=== PATIENT | female | born 1970 | race Caucasian/White ===

== ENCOUNTER 2019-06-21 20:38 | Emergency (ER) | payer MEDICAID ==
[~2019-06-21] VITALS: Ht 157.5 cm; Wt 77.1 kg
[2019-06-21 20:44] VITALS: BP_SYST 139
--- NOTE | 2019-06-21 22:13 | NUR ---
Called patient x 1 , no answer
--- NOTE | 2019-06-21 22:18 | NUR ---
Patient to ER H1 for evaluation. Side rails up.
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
--- NOTE | 2019-06-21 22:30 | NUR ---
Dr. Paul bedside for Pt eval
[2019-06-21] MEDS ORDERED: methylPREDNISolone SOD SUCC/PF 62.5 MG/ML VIAL IM ONE (22:45)
[2019-06-21] MEDS ORDERED: SILVER SULFADIAZINE 1%, 25 GM TOPICAL CREAM (SSD) TP ONE (22:45)
[2019-06-21 23:04] VITALS: BP_SYST 139
--- NOTE | 2019-06-21 23:04 | NUR ---
Patient given written and verbal discharge instructions and verbalizes understanding. ER MD discussed with patient the results and treatment provided. Patient in stable condition. ID arm band removed. Rx of Prednisone, Silvadene 1% topical, and Benadryl given. Patient educated on pain management and to follow up with PMD. Pain Scale 0/10. Opportunity for questions provided and answered. Medication side effect fact sheet provided.
== END 2019-06-21 23:04 | disposition home or self-care (01) ==
LOC: SED 20:38
DX: L55.0 Sunburn of first degree (principal); L23.7 Allergic contact dermatitis due to plants, except food; E78.00 Pure hypercholesterolemia, unspecified; E11.9 Type 2 diabetes mellitus without complications; I10 Essential (primary) hypertension; Z85.828 Personal history of other malignant neoplasm of skin
CPT/HCPCS: 16000; 96372; 99284; J2930

== ENCOUNTER 2021-06-13 18:04 | Emergency (ER) | payer MEDICAID ==
[~2021-06-13] VITALS: Ht 157.5 cm; Wt 72.6 kg
--- NOTE | 2021-06-13 18:04 | NUR ---
BROUGHT IN BY WHEELCHAIR TO BED HALLWAY. [place] AND REPORT GIVEN TO CELINE
[2021-06-13 18:05] VITALS: BP_SYST 134
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
--- NOTE | 2021-06-13 18:21 | NUR ---
ER DR. RODRIGUEZ AT THE BEDSIDE EXAMINING PT
[2021-06-13] MEDS ORDERED: HYDR-3917 PO (22:45)
[2021-06-13 23:09] VITALS: BP_SYST 134
--- NOTE | 2021-06-13 23:09 | NUR ---
Patient given written and verbal discharge instructions and verbalizes understanding. ER MD discussed with patient the results and treatment provided. Patient in stable condition. ID arm band removed. Rx of [place] given. Patient educated on pain management and to follow up with PMD. Pain Scale 1/10. Opportunity for questions provided and answered. Medication side effect fact sheet provided.
== END 2021-06-13 23:09 | disposition home or self-care (01) ==
LOC: SED 18:04
DX: S92.351A Displaced fracture of fifth metatarsal bone, right foot, initial encounter for closed fracture (principal); S00.83XA Contusion of other part of head, initial encounter; S70.12XA Contusion of left thigh, initial encounter; S50.02XA Contusion of left elbow, initial encounter; M25.561 Pain in right knee; I10 Essential (primary) hypertension; E11.9 Type 2 diabetes mellitus without complications; E78.00 Pure hypercholesterolemia, unspecified; W05.1XXA Fall from non-moving nonmotorized scooter, initial encounter; Y93.89 Activity, other specified; Y92.89 Other specified places as the place of occurrence of the external cause; Y99.8 Other external cause status
CPT/HCPCS: 70450-TC; 70486-TC; 72170-TC; 73552; 73560-TC; 76376; 99285